=== PATIENT | female | born 1965 | race Two or more races ===

== ENCOUNTER 2022-04-17 06:49 | Emergency (ER) | payer OTHER ==
[~2022-04-17] VITALS: Ht 172.7 cm; Wt 77.1 kg
[2022-04-17] MEDS ORDERED: ATORVASTATIN CA40 MG PO (07:23)
[2022-04-17] MEDS ORDERED: TOPROL XL50 M1 PO (07:23)
== END 2022-04-17 11:17 | disposition home or self-care (01) ==
LOC: ER 06:49
DX: U07.1 COVID-19 (principal); B34.9 Viral infection, unspecified

== ENCOUNTER 2022-04-18 10:00 | Outpatient (CLI) | payer OTHER ==
[~2022-04-18 10:00] MED LIST: ATORVASTATIN CA40 MG PO; TOPROL XL50 M1 PO
== END 2022-04-18 10:50 | disposition home or self-care (01) ==
LOC: ASH CLINIC 10:00
PROVIDERS: ATTEND Specialist
DX: U07.1 COVID-19 (principal)

== ENCOUNTER 2023-09-13 11:23 | Emergency (ER) | payer OTHER ==
[~2023-09-13] VITALS: Ht 172.7 cm; Wt 79.8 kg
== END 2023-09-13 15:00 | disposition home or self-care (01) ==
LOC: ER 11:23
DX: J06.9 Acute upper respiratory infection, unspecified (principal); Z20.822 Contact with and (suspected) exposure to COVID-19

== ENCOUNTER 2023-09-16 08:11 | Emergency (ER) | payer OTHER ==
[~2023-09-16] VITALS: Ht 152.4 cm; Wt 77.1 kg
[2023-09-16] MEDS ORDERED: MONTELUKAST SOD10 MG PO (10:05)
[2023-09-16] MEDS ORDERED: FLONASE ALLERG9.9 ML NASAL (10:05)
[2023-09-16] MEDS ORDERED: ZYRTEC10 M3 PO (10:05)
[2023-09-16] MEDS ORDERED: SINUS RINSE ST1 EACH NASAL (10:05)
== END 2023-09-16 10:37 | disposition home or self-care (01) ==
LOC: ER 08:11
DX: J31.0 Chronic rhinitis (principal); R09.82 Postnasal drip; R05.9 Cough, unspecified; I10 Essential (primary) hypertension

== ENCOUNTER → 2024-12-12 | Emergency (ER) | payer OTHER ==
[~2024-12-12] VITALS: Ht 172.7 cm; Wt 72.6 kg
[~2024-12-12] MED LIST changes: +ALBUTEROL SULFATE 3 ML/2.5 MG AMPUL.NEB IH STA; +ALBUTEROL2.5 MG/3 M IH; +BUDESONIDE 0.5 MG/2 ML AMPUL.NEB IH STA; +BUDESONIDE0.5 MG/2 M IH; +FLONASE ALLERG9.9 ML NASAL; +MONTELUKAST SOD10 MG PO; +PROMETHAZINE W473 ML PO; +SINUS RINSE ST1 EACH NASAL; +ZITHROMAX500 MG PO; +ZYRTEC10 M3 PO
[2024-12-12 12:43] LABS: HEMATOCRIT 40.2 % (36.0-45.00); HEMOGLOBIN 12.8 g/dL (12.0-15.00); MEAN CELL VOLUME 84.1 fL (80.00-100.00); MEAN CORPUSCULAR HEMOGLOBIN 26.8 pg (27.00-32.0); MEAN CORPUSCULAR HGB CONC 31.9 g/dl (32.0-36.0); PLATELET COUNT 188 K/uL (150-450); RED BLOOD COUNT 4.78 M/uL (4.00-6.00); RED CELL DISTRIBUTION WIDTH 13.8 % (11.5-14.5)
== END | disposition home or self-care (01) ==
LOC: ER 11:00
PROVIDERS: Emergency Medicine
DX: J40 Bronchitis, not specified as acute or chronic (principal); Z20.822 Contact with and (suspected) exposure to COVID-19; I10 Essential (primary) hypertension

== ENCOUNTER 2025-06-17 00:57 | Inpatient (IN) | payer OTHER ==
[~2025-06-17] VITALS: Ht 172.7 cm; Wt 79.4 kg
[~2025-06-17 00:57] MED LIST changes: -ALBUTEROL SULFATE 3 ML/2.5 MG AMPUL.NEB IH STA; -BUDESONIDE 0.5 MG/2 ML AMPUL.NEB IH STA
[2025-06-17] MEDS ORDERED: DILTIAZEM HCL 25 MG/5 ML VIAL IV ONE (01:35)
[2025-06-17] MEDS ORDERED: 0.9 % SODIUM CHLORIDE 1,000 ML IV STA (01:56)
[2025-06-17] MEDS ORDERED: DILTIAZEM HCL 50 MG/10 ML VIAL IV STA ×2 (01:57→01:58)
[2025-06-17] MEDS ORDERED: CLONAZEPAM 1 MG TABLET PO STA (01:59)
[2025-06-17 02:12] LABS: BASO % 0.9 % (0.1-1.2); EOS # 0.14 (0.04-0.54); EOS % 1.7 % (0.7-7.0); LYMPH # 2.90 (1.18-3.74); LYMPH % 35.8 % (19.3-53.1); MEAN PLATELET VOLUME 11.00 fl (9.4-12.4); MONO # 0.75 (0.24-0.82); MONO % 9.3 % (4.7-12.5); NEUT # 4.23 (1.56-6.13); NEUT % 52.2 % (34.0-71.1); RED CELL DISTRIBUTION WIDTH 13.2 % (11.6-14.4)
[2025-06-17 02:33] LABS: D DIMER 0.26 MG/L
[2025-06-17 02:58] LABS: INR < 0.93
[2025-06-17 03:07] LABS: ALT/SGPT 39.0 U/L (12-78); AST/SGOT 26.0 U/L (15-37); BILIRUBIN TOTAL 0.29 mg/dL (0.3-1.2); BUN CREA RATIO 22.0 (7.0-25.0); CREATININE SERUM 0.67 mg/dL (0.55-1.02); GFR 90.4; GLOBULINA 4.2 G/DL (2.4-3.5); GLUCOSE FASTING 113.0 mg/dL (65-100); OSMOLALITY SERUM 287.0 MOSM/KG (275-295); TSH 4.18 uIU/mL (0.358-3.74)
[2025-06-17] MEDS ORDERED: ACETAMINOPHEN 500 MG GEL..CAP PO ONE (07:06)
[2025-06-17] MEDS ORDERED: ENOXAPARIN SODIUM 40 MG/0.4 ML SYRINGE SUBCUTANEO SCH (13:03)
[2025-06-17] MEDS ORDERED: ASPIRIN 81 MG TABLET.EC PO SCH (13:03)
[2025-06-17] MEDS ORDERED: LOSARTAN POTASSIUM 25 MG TABLET PO SCH (13:04)
[2025-06-17] MEDS ORDERED: ENOXAPARIN SODIUM 40 MG/0.4 ML SYRINGE SUBCUTANEO ONE (13:33)
[2025-06-17 15:12] VITALS: BP 145/88; O2SAT 98
[2025-06-17 15:42] VITALS: BP 145/73; O2SAT 97
[2025-06-17 16:55] VITALS: O2SAT 97
[2025-06-17] MEDS ORDERED: ATORVASTATIN CALCIUM 40 MG TABLET PO SCH (17:00)
[2025-06-17 19:55] VITALS: O2SAT 96
[2025-06-17 21:15] VITALS: BP 129/78
[2025-06-18] VITALS (9 sets, daily range): BP systolic 111–163; BP diastolic 72–84; O2SAT 94–98
[2025-06-18 08:06] LABS: BASO % 1.2 % (0.1-1.2); EOS # 0.12 (0.04-0.54); EOS % 2.1 % (0.7-7.0); LYMPH # 2.18 (1.18-3.74); LYMPH % 38.8 % (19.3-53.1); MEAN PLATELET VOLUME 11.20 fl (9.4-12.4); MONO # 0.47 (0.24-0.82); MONO % 8.4 % (4.7-12.5); NEUT # 2.77 (1.56-6.13); NEUT % 49.3 % (34.0-71.1); RED CELL DISTRIBUTION WIDTH 13.4 % (11.6-14.4)
[2025-06-18 08:23] LABS: ALT/SGPT 31.0 U/L (12-78); AST/SGOT 19.0 U/L (15-37); BILIRUBIN TOTAL 0.6 mg/dL (0.3-1.2); BUN CREA RATIO 23.0 (7.0-25.0); CHOL HDL RATIO 2.6 (0-5.0); CREATININE SERUM 0.57 mg/dL (0.55-1.02); GFR 108.94; GLOBULINA 3.5 G/DL (2.4-3.5); GLUCOSE FASTING 92.0 mg/dL (65-100); HDL 61.0 mg/dl (40-60); LDL 77.0 mg/dl (0-130); OSMOLALITY SERUM 285.0 MOSM/KG (275-295); T4 FREE 1.06 NG/ML (0.76-1.46); TSH 0.862 uIU/mL (0.358-3.74); VLDL 21.0 (0-39)
[2025-06-18 08:50] LABS: INR 1.03
[2025-06-18] MEDS ORDERED: RIVAROXABAN 20 MG TABLET PO SCH (09:00)
[2025-06-18] MEDS ORDERED: METOPROLOL SUCCINATE 25 MG TAB.SR.24H PO SCH (09:00)
[2025-06-18 11:12] LABS: URINE BILIRRUBIN SMALL (NEGATIVE); URINE BLOOD NEGATIVE; URINE GLUCOSE NEGATIVE (NEGATIVE); URINE KETONE NEGATIVE (NEGATIVE); URINE LEUKOCYTE SMALL; URINE NITRATE NEGATIVE; URINE PROTEIN NEGATIVE (NEGATIVE); URINE UROBILINOGEN 0.2 E.U./dl
[2025-06-18 11:37] LABS: URINE APPEARANCE CLOUDY; URINE COLOR YELLOW
[2025-06-18 11:38] LABS: URINE CRYSTALS NEGATIVE /HPF; URINE RBC 0-3 /HPF; URINE WBC LOADED /hpf
[2025-06-18 11:39] LABS: URINE BACTERIA FEW; URINE MUCUS HEAVY
[2025-06-19] VITALS (7 sets, daily range): BP systolic 107–127; BP diastolic 70–81; O2SAT 90–99
== END 2025-06-19 16:50 | disposition home or self-care (01) | DRG 310 ==
LOC: ER 00:57 → SEC-K 13:04 → MEDI 13:04
PROVIDERS: ADMIT Internal Medicine; ATTEND Internal Medicine
PROC: B246ZZZ Ultrasonography of Right and Left Heart (ICD-10-PCS; principal; 2025-06-17)
PROC: 4A12X4Z Monitoring of Cardiac Electrical Activity, External Approach (ICD-10-PCS; 2025-06-17)
DX: I47.19 Other supraventricular tachycardia (principal); I48.92 Unspecified atrial flutter; I10 Essential (primary) hypertension; E78.49 Other hyperlipidemia

== ENCOUNTER 2025-06-24 08:47 | Emergency (ER) | payer OTHER ==
[~2025-06-24] VITALS: Ht 172.7 cm; Wt 79.4 kg
[2025-06-24] MEDS ORDERED: KAPSPARGO SPRIN25 MG PO (09:35)
[2025-06-24] MEDS ORDERED: COZAAR25 MG PO (09:35)
[2025-06-24] MEDS ORDERED: XARELTO20 MG PO (09:36)
[2025-06-24] MEDS ORDERED: LIPITOR40 M1 PO (09:36)
== END 2025-06-24 10:11 | disposition home or self-care (01) ==
LOC: ER 08:53
DX: R00.2 Palpitations (principal); I48.91 Unspecified atrial fibrillation; F43.10 Post-traumatic stress disorder, unspecified